=== PATIENT | female | born 1965 | race Caucasian/White ===

== ENCOUNTER 2018-01-15 17:56 | Emergency (ER) | payer MEDICAID ==
[~2018-01-15] VITALS: Ht 160 cm; Wt 86.0 kg
[~2018-01-15 17:56] MED LIST: AMLO10TA80 PO; ATOR20TA65 PO; BENA40TA3 PO; CALC0.253 PO; CIPR2.5D9 RIGHTEYE; EPOGEN SUBCUT; FERR-63 PO; FOLI-43 PO; FURO80TA3 PO; GABA-531 PO; GEMF600T3 PO; HUMALOG SUBCUT; INSU3INS6 SUBCUT; ISOS60TA4 PO; NEPVIT PO; SITA50TA3 PO; VELPHORO PO
[2018-01-15 19:30] LABS: CHLORIDE 104 mEq/L (98-107)
[2018-01-15 19:31] LABS: BASOPHILS % 0.7 % (0.0-2.0); EOSINOPHILS % 3.7 % (0.0-5.0); HEMATOCRIT. 35.1 % (36.0-48.0); HEMOGLOBIN. 11.5 g/dL (12.0-16.0); MEAN CORPUSCULAR HEMOGLOBIN 29.8 pg (28.0-32.0); MEAN CORPUSCULAR VOLUME 90.9 fL (81.0-99.0); MEAN PLATELET VOLUME 7.9 fl (7.4-10.4); MONOCYTES % 8.4 % (2.0-8.0); NEUTROPHILS % 75.2 % (40.0-76.0); PLATELET 425 x1000/uL (130-400); RED BLOOD CELL COUNT 3.86 mill/uL (4.2-5.4); RED CELL DISTRIBUTION WIDTH 14.5 % (11.6-14.6)
[2018-01-15 19:33] LABS: INR 0.9; PROTHROMBIN TIME 9.7 sec (9.4-11.6)
[2018-01-15 19:35] LABS: HCG SCREEN NEGATIVE
[2018-01-15] MEDS ORDERED: ONDANSETRON 4MG ODT PO ONE (21:28)
[2018-01-15 21:29] LABS: CLARITY URINE TURBID (CLEAR); COLOR URINE YELLOW (YELLOW); KETONES URINE TRACE (NEGATIVE); LEUKOCYTE ESTERASE URINE 2+ (NEGATIVE); NITRITE URINE NEGATIVE (NEGATIVE); OCCULT BLOOD URINE TRACE (NEGATIVE); PROTEIN URINE 3+ (NEGATIVE); UROBILINOGEN URINE 0.2 E.U./dL (0.2-1.0)
[2018-01-15] MEDS ORDERED: TRAMADOL HCL/ACETAMINOPHEN 37.5/325MG TABLET PO ONE (21:29)
[2018-01-15] MEDS ORDERED: SULFAMETHOXAZOLE/TRIMETHOPRIM 800/160MG TABLET PO ONE (23:45)
[2018-01-16 01:41] VITALS: BP 132/64
== END 2018-01-16 01:43 | disposition home or self-care (01) ==
LOC: ER 17:56
DX: N39.0 Urinary tract infection, site not specified (principal); I12.0 Hypertensive chronic kidney disease with stage 5 chronic kidney disease or end stage renal disease; E11.22 Type 2 diabetes mellitus with diabetic chronic kidney disease; N18.6 End stage renal disease; N17.9 Acute kidney failure, unspecified; E78.00 Pure hypercholesterolemia, unspecified; Z99.2 Dependence on renal dialysis; Z79.4 Long term (current) use of insulin
CPT/HCPCS: 36415; 71045; 80053; 81003; 83690; 84703; 85025; 85610; 87077; 87086; 87186; 99285; Q0162